=== PATIENT | female | born 1990 | race Hispanic/Latino ===

== ENCOUNTER 2021-03-08 10:14 | Outpatient (CLI) | payer OTHER | END 2021-03-08 10:15 | disposition home or self-care (01) | LOC: CSHLAB 10:14 | PROVIDERS: ATTEND Family Medicine | DX: Z20.822 Contact with and (suspected) exposure to COVID-19 (principal) | CPT/HCPCS: 87635; U0003; U0005 ==

== ENCOUNTER → 2021-03-10 | Day surgery (SDC) | payer OTHER ==
[2021-03-08 20:40] LABS: SARS-CoV-2 PCR by NAA Not Detected (NotDetected)
[2021-03-09 11:34] VITALS: BMI 25.7
[~2021-03-10] MED LIST: Dexamethasone 20 MG/5 ML VIAL ONE; Fentanyl 100 MCG/2 ML VIAL ONE; Ketorolac Tromethamine 15 MG/ML VIAL ONE; Lidocaine 1% MPF 2 ML VIAL ONE; Lidocaine 1% PF 5 ML VIAL ONE; Misoprostol 200 MCG TAB FS SCH; Ondansetron PF 4 MG/2 ML Vial ONE; PROPOFOL 0 ML ONE; PROPOFOL 20 ML ONE
[2021-03-10 11:24] LABS: #Eosinphils 0.1 10x3/uL (0.0-0.5); #Monocytes 0.6 10x3/uL (0.0-1.1); #Neutrophils 4.3 10x3/uL (1.5-8.4); %Basophils 0.3 % (0.0-2.0); %Lymphocytes 24.9 % (18.0-47.0); %Monocytes 8.4 % (0.0-10.0); %Neutrophils 64.1 % (40.0-75.0); Hemoglobin 13.2 g/dL (12.0-15.5); Mean Corpuscular HGB CONC 34.6 g/dL (32.0-36.0); Mean Corpuscular Hemoglobin 31.7 pg (27.0-33.0); Mean Corpuscular Volume 91.4 fl (81.6-98.3); Mean Platelet Volume 11.9 fl (7.4-10.4); Platelet Count 193 10x3/uL (150-450); RBC Distribution Width 11.8 % (11.5-14.5); Red Blood Cell (RBC) Count 4.17 10x6/uL (3.90-5.03); White Blood Cell (WBC) Count 6.7 10x3/uL (3.5-10.5)
== END | disposition home or self-care (01) ==
LOC: CSHSDC 09:30
PROVIDERS: ATTEND Family Medicine
PROC: 10D07Z8 Extraction of Products of Conception, Other, Via Natural or Artificial Opening (ICD-10-PCS; principal; 2021-03-10)
DX: O02.0 Blighted ovum and nonhydatidiform mole (principal)
CPT/HCPCS: 85025; 86850; 86900; 86901; 87635; 88305; J1100; J1885; J2405; J2704; J3010; U0003; U0005